=== PATIENT | male | born 1980 | race Hispanic/Latino ===

== ENCOUNTER → 2020-05-24 | Outpatient (CLI) | payer BC ==
--- NOTE | 2020-05-24 11:22 | Diagnostic Imaging Report ---
EXAM: CHEST 2 VIEWS, RIBS UNILAT W/CXR DATE: 05/24/2020 10:30 AM INDICATION: Right rib pain COMPARISON: None FINDINGS: The trachea is midline. The lungs are symmetrically expanded without evidence for large focal consolidation, pneumothorax, or significant pleural effusion. The cardiomediastinal silhouette and pulmonary vasculature are within normal limits. No acute osseous abnormality is identified. Specifically, no radiographically evident/displaced right-sided rib fracture is appreciated. The surrounding soft tissues are unremarkable. IMPRESSION: No acute cardiopulmonary process identified. No radiographic evident right-sided rib fracture is appreciated. Signed by: Dr. Rubio Perez MD on 05/24/2020 11:18 AM
== END ==
LOC: RAD 10:22
PROVIDERS: ATTEND Family Medicine
DX: R07.89 Other chest pain (principal)
CPT/HCPCS: 71046; 71101

== ENCOUNTER 2020-05-29 17:19 | Emergency (ER) | payer BC ==
[~2020-05-29] VITALS: Ht 182.9 cm; Wt 99.8 kg
[2020-05-29] MEDS ORDERED: ONDANSETRON HCL INJ 2MG/ML 2ML 2 MG/ML VIAL IV STA (17:39)
[2020-05-29] MEDS ORDERED: MORPHINE SULFATE INJ 4 MG/ML INJ 1ML IV STA (17:39)
[2020-05-29] MEDS ORDERED: SODIUM CHLORIDE 0.9% 1000ML 1,000 ML IV STA (17:39)
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
[2020-05-29] MEDS ORDERED: ASPIRIN 81 MG CHEW TAB PO ONE (17:45)
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
--- OUTSIDE RECORDS SUMMARY | 2020-05-29 18:07 | XMS REPORT | Continuity of Care Document ---
Author Author [facility] t Organization [facility] Address [address] [place] [address] Phone Unavailable Care Team Providers Care Outgoing Inspector Name Role Phone UNKNOWN, REFFERING PCP Unavailable Whitney MELÉNDEZ MD Attphys Unavailable Rubio Guo Attphys Lion Guerrero Attphys Melvina Goodson Attphys Problems Condition Name Condition Details Condition Category Status Onset Date Resolution Date Last Treatment Date Treating Clinician Comments Source DX: N50.9= /R31.0 DX: N50.9= /R31.0 Active 04/13/2018 [facility] Active 2018-04-13 00:00:00 2018-04-17 12:46:00 Nayely Dodd PAIN PAIN Active 03/27/2018 [facility] Active 2018-03-27 00:00:00 2018-03-27 18:23:00 Nayely Dodd UNSPECIFIED DISORDER OF MALE GENITAL ORGANS UNSPECIFIED DISORDER OF MALE GENITAL ORGANS Active 04/19/2014 Condition 05/03/2014 Medical Group Condition Active 2014-04-19 00:00:00 2014-05-03 11:17:45 Nayely Dodd Disease of male genital organ (disorder) Disease of male genital organ (disorder) Active 04/19/2014 Problem 11/04/2018 Data migrated from [facility] on 02/14/15. [facility] Problem Active 2014-04-19 00:00: 00 2018-11-04 13:39:54 Nayely Dodd LOWER ABDOMINAL PAIN/SWELLING-OTHER LOWER ABDOMINAL PAIN/SWELLING-OTHER Active 04/11/2014 [facility] Ac tive 2014-04-11 00:00:00 2014-04-11 11:56:00 M emorimaryanne Dodd Gross hematuria Esmer s hematuria 11/04/2018 [facility] Problem 2018-11-04 13:39:54 Nayely Dodd Diverticulosis of large intestine withou t perforation or abscess without bleeding Diverticulosis o f large intestine without perforation or abscess without bleeding 11/04/2018 [facility] Problem 2018-11-04 13:39:54 [facility] Disorder of male genital organs, unspecified Disorder of male genital organs, unspecified 04/23/2018 11/04/2018 [facility] Problem 2018-04-23 03:19:04 2018-11-04 13:39:54 2018-11-04 13:39:54 [facility] Urinary tract infection, site not specified Urinary tract infection, site not specified 03/27/2018 03/30/2018 [facility] Problem 2018-03-27 05:00:00 2018-03-30 03:21:12 2018-03-30 03:21:12 [facility] Discharge Diagnosis: Hernia, inguinal, left Discharge Diagnosis: Hernia, inguinal, left 04/11/2014 04/14/2014 [facility] Problem 2014-04-11 05:00:00 2014-04-14 00:34:32 2014-04-14 00:34:32 [facility] Discharge Diagnosis: Nonspecific urethritis Discharge Diagnosis: Nonspecific urethritis 04/11/2014 04/14/2014 [facility] Problem 2014-04-11 05:00:00 2014-04-14 00:34:32 2014-04-14 00:34:32 [facility] Allergies, Adverse Reactions, Alerts This patient has no known allergies or adverse reactions. Social History Social Habit Start Date Stop Date Quantity Comments Source Social History 2014-04-11 16:37:01 2014-04-11 16:37:01 [facility] Medications Ordered Medication Name Filled Medication Name Start Date Stop Da te Current Medication? Ordering Clinician Indication Dosage Frequency Signature (SIG) Comments Components Source Omnipaque 300 injectable solution 2018-04-17 19:00:00 No Notes: (Same as:Omnipaque 300). WASTE: F/P - Black; E - Municipal Trash Bin [facility] Pyridium 2018-03-28 00:47:00 No 200 mg, Route: PO, ONCE, Dosing Weight 92.273, kg, Priority: STAT, Start date: 03/27/18 19:47:00 CDT, Stop date: 03/27/18 19:47:[address] [facility] Phenazopyridine hydrochloride 200 MG Oral Tablet [Pyridium] 2018-03-28 00:46:00 No 200 mg = 1 tab, PO, TID, PRN Dysuria, X 2 day, # 6 tab, 0 Refill(s) Nayely Dodd Ciprofloxacin 500 MG Oral Tablet [Cipro] 2018-03-28 00:46:00 Yes 500 mg = 1 tab, PO, Q12H, X 14 day, # 28 tab, 0 Refill(s) Nayely Dodd DOXYCYCLINE HYCLATE 100 MG CAPS 2014-04-19 00:00:00 No Take one capsule by mouth twice daily for 10 days Nayely Dodd doxycycline hyclate 100 mg oral tablet 2014-04-11 17:57:00 Yes 100 mg = 1 tab, PO, Q12H, # 20 tab, 0 Refill(s) Nayely Dodd Azithromycin 2014-04-11 16:58:00 No 1,000 mg, Route: PO, ONCE, Dosing Weight 100, kg, Priority: STAT, Start date: 04/11/14 11:58:00, Stop date: 04/11/14 11:58:00 Nayely Dodd Ceftriaxone 2014-04-11 16:58:00 No 250 mg, Route: IM, Drug form: PDR/INJ, ONCE, Dosing Weight 100, kg, Priority: STAT, Start date: 04/11/14 11:58:00, Stop date: 04/11/14 11:58:00 Desi Dodd Vital Signs Vital Name Observation Time Observation Value Comments Source Heart Rate 2018-03-28 01:39:00 Nayely Dodd Temperature Oral (F) 2018-03-28 01:39:00 98 F [facility] Respitory Rate 2018-03-28 01:39:00 Saundra al [facility] Systolic (mm Hg) 2018-03-28 01:39:00 [facility] Diastolic (mm Hg) 2018-03-28 01:39:00 [facility] Temperature Oral (F) 2018-03-27 22:43:00 98.7 F [facility] Systolic (mm Hg) 2018-03-27 22:43:00 [facility] Diastolic (mm Hg) 2018-03-27 22:43:00 Marilou Dodd BMI Calculated 2018-03-27 22:43:00 Saundra al [facility] Height 2018-03-27 22:43:00 172.72 cm [facility] Weight 2018-03-27 22:43:00 [facility] Respitory Rate 2018-03-27 22:43:00 [facility] Heart Rate 2018-03-27 22:43:00 [facility] Height 2014-05-03 16:17:45 [facility] Weight 2014-05-03 16:17:45 [facility] Temperature Oral (F) 2014-05-03 16:17:45 98.1 F [facility] Heart Rate 2014-05-03 16:17:45 [facility] Systolic (mm Hg) 2014-05-03 16:17:45 [facility] Diastolic (mm Hg) 2014-05-03 16:17:45 [facility] Height 2014-04-19 19:00:04 [facility] Weight 2014-04-19 19:00:04 [facility] Temperature Oral (F) 2014-04-19 19:00:04 99.0 F [facility] Heart Rate 2014-04-19 19:00:04 [facility] Systolic (mm Hg) 2014-04-19 19:00:04 [facility] Diastolic (mm Hg) 2014-04-19 19:00:04 [facility] Diastolic (mm Hg) 2014-04-11 18:04:00 [facility] Temperature Oral (F) 2014-04-11 18:04:00 98.1 F [facility] Heart Rate 2014-04-11 18:04:00 [facility] Respitory Rate 2014-04-11 18:04:00 [facility] Systolic (mm Hg) 2014-04-11 18:04:00 [facility] Weight 2014-04-11 14:10:00 [facility] BMI Calculated 2014-04-11 14:10:00 [facility] Height 2014-04-11 14:10:00 172.72 cm [facility] Temperature Oral (F) 2014-04-11 14:10:00 99.0 F [facility] Diastolic (mm Hg) 2014-04-11 14:10:00 [facility] Heart Rate 2014-04-11 14:10:00 [facility] Respitory Rate 2014-04-11 14:10:00 [facility] Systolic (mm Hg) 2014-04-11 14:10:00 [facility] Procedures Procedure Date / Time Performed Performing Clinician Gemma restrepo smoking/tobacco cessation, patient education and counseling 2014-05-03 16:17:45 [facility] Encounters Start Date/Time End Date/Time Encounter Type Admission Type Att[facility] Care Department Encounter ID Source 2018-04-17 12:39:00 2018-04-17 23:59:00 Outpatient Sari Jesus [facility] [id number] 2018-03-27 17:35:00 2018-03-27 20:41:00 Outpatient Alvin Guerrero valerio [facility] [id number] 2017-12-20 13:58:00 2017-12-20 13:58:00 Emergency E [facility] [id number] [facility] 2014-04-11 08:50:00 2014-04-11 13:53:00 Outpatient Yao Goodson [facility] [id number] Results Test Description Test Time Test Comments Results Result Comments Source RIBS UNILAT W/CXR 2020-05-24 11:11:00 [place] [address] Patient Name: AGNES YODER MR #: [id number] : 1980 Age/Sex: 39/M Req #: [id number] Adm Physician: Ordered by: MEDHAT CROWE, ALEJANDRA Olson MD Report #: [id number] Location: [facility] Room/Bed: Procedure: [id number] DX/RIBS UNILAT W/CXR Exam Date: 05/24/20 Exam Time: 1030 REPORT STATUS: Signed EXAM: CHEST 2 VIEWS, RIBS UNILAT W/CXR DATE: 05/24/2020 10:30 AM INDICATION: Right rib pain COMPARISON: None FINDINGS: The trachea is midline. The lungs are symmetrically expanded without evidence for large focal consolidation, pneumothorax, or significant pleural effusion. The cardiomediastinal silhouette and pulmonary vasculature are within normal limits. No acute osseous abnormality is identified. Specifically, no radiographically evident/displaced right-sided rib fracture is appreciated. The surrounding soft tissues are unremarkable. IMPRESSION: No acute cardiopulmonary process identified. No radiographic evident right-sided rib fracture is appreciated. Signed by: Dr. Rubio Perez MD on 05/24/2020 11:18 AM Dictated By: RUBIO PEREZ MD [id number] COPY TO: ALEJANDRA MELÉNDEZ CHEST 2 VIEWS 2020-05-24 11:11:00 [place] [address] Patient Name: AGNES YODER MR #: [id number] : 1980 Age/Sex: 39/M Req #: [id number] Adm Physician: Ordered by: MEDHAT CROWE, ALEJANDRA Olson MD Report #: [id number] Location: RAD Room/Bed: Procedure: [id number] DX/CHEST 2 VIEWS Exam Date: 05/24/20 Exam Time: 1030 REPORT STATUS: Signed EXAM: CHEST 2 VIEWS, RIBS UNILAT W/CXR DATE: 05/24/2020 10:30 AM INDICATION: Right rib pain COMPARISON: None FINDINGS: The trachea is midline. The lungs are symmetrically expanded without evidence for large focal consolidation, pneumothorax, or significant pleural effusion. The cardiomediastinal silhouette and pulmonary vasculature are within normal limits. No acute osseous abnormality is identified. Specifically, no radiographically evident/displaced right-sided rib fracture is appreciated. The surrounding soft tissues are unremarkable. IMPRESSION: No acute cardiopulmonary process identified. No radiographic evident right-sided rib fracture is appreciated. Signed by: Dr. Rubio Perez MD on 05/24/2020 11:18 AM Dictated By: RUBIO PEREZ MD [id number] COPY TO: ALEJANDRA MELÉNDEZ CHEM PANEL 2018-04-17 18:16:00 113 [facility] CHEM PANEL 2018-04-17 18:16:00 0.8 [facility] URINE AND STOOL 2018-03-27 22:57:00 16 [facility] URINE AND STOOL 2018-03-27 22:57:00 7 [facility] URINE AND STOOL 2018-03-27 22:57:00 Negative (03/27/18 5:57 PM) [facility] URINE AND STOOL 2018-03-27 22:57:00 Moderate *ABN*(03/27/18 5:57 PM) [facility] URINE AND STOOL 2018-03-27 22:57:00 Test Item UA Spec Grav (test code = UA Spec Grav) 1.013 1 [facility] [id number] 22:57:00* Test Item Value Reference Range Interpretation Comments UA pH (test code = UA pH) 5.0 1 5.0-8.0 [facility] [id number] 22:57:00Clear (03/27/18 5:57 PM) [facility] [id number] 22:57:00Negative *NA*(03/27/18 5:57 PM) [facility] [id number] 22:57:00Small *ABN*(03/27/18 5:57 PM) [facility] 1 [id number] 15:38:35EXAM: CHEST ONE VIEWINDICATION: Chest painCOMPARISON: None availableTECHNIQUE: AP view of the chest.FINDINGS: The cardiomediastinal silhouette is normal. The lungs are clearbilaterally. No pneumothorax or pleural effusion is identified. Theosseous structures are unremarkable.IMPRESSION: No acute cardiopulmonary process .LOCATION: [id number] AND [id number] 16:15:00Yellow *NA*(04/11/14 11:15 AM) [facility] [id number] 16:15:00Slight *ABN*(04/11/14 11:15 AM) [facility] [id number] 16:15:004[facility] [id number] 16:15:0014[facility] [id number] 16:15:00 1.026[facility] [id number] 16:15:005.0[facility] [id number] 16:15:00Negative (04/11/14 11:15 AM)[facility] [id number] 16:15:00Negative (04/11/14 11:15 AM)[facility] [id number] 16:15:00Negative *NA*(04/11/14 11:15 AM)[facility] [id number] 16:15:00Trace *ABN*(04/11/14 11:15 AM)[facility]
[2020-05-29 18:09] LABS: BASOPHILS # (AUTO) 0.1 (0.0-0.1); BASOPHILS % 0.6 % (0.0-1.0); EOSINOPHILS # (AUTO) 0.1 (0.0-0.4); EOSINOPHILS % 1.3 % (0.0-6.0); HEMATOCRIT 48.1 % (38.2-49.6); HEMOGLOBIN 15.6 g/dL (14.0-18.0); LYMPHOCYTES # (AUTO) 2.5 (1.0-3.2); MEAN CORPUSCULAR HEMOGLOBIN 27.2 pg (28-32); MEAN CORPUSCULAR HGB CONC 32.4 g/dL (31-35); MEAN CORPUSCULAR VOLUME 83.9 fL (81-99); MONOCYTES # (AUTO) 0.7 (0.2-0.8); MONOCYTES % 7.2 % (4.4-11.3); NEUTROPHILS # (AUTO) 6.2 (2.1-6.9); NEUTROPHILS % 64.5 % (38.7-80.0); PLATELET COUNT 219 x10e3/uL (140-360); RED BLOOD COUNT 5.73 x10e6/uL (4.3-5.7); RED CELL DISTRIBUTION WIDTH 14.3 % (11.7-14.4)
[2020-05-29] MEDS ORDERED: KETOROLAC TROMETHAMINE 30 MG/ML VIAL IV STA (18:31)
[2020-05-29 18:33] LABS: ALANINE AMINOTRANSFERASE 31 IU/L (0-55); ALBUMIN/GLOBULIN RATIO 1.7 (0.8-2.0); ALKALINE PHOSPHATASE 67 IU/L (40-150); ANION GAP 15.8 mmol/L (8-16); BLOOD UREA NITROGEN 16 mg/dL (7-26); BUN/CREATININE RATIO 16 (6-25); CARBON DIOXIDE 26 mmol/L (22-29); CHLORIDE 103 mmol/L (98-107); CREATINE KINASE 239 IU/L (30-200); CREATININE, SERUM 1.03 mg/dL (0.72-1.25); EST GLOMERULAR FILTRATION RATE > 60 ML/MIN (60-); GLUCOSE 92 mg/dL (74-118); POTASSIUM 3.8 mmol/L (3.5-5.1); SODIUM 141 mmol/L (136-145)
[2020-05-29 18:37] LABS: AMPHETAMINES SCREEN,URINE NEGATIVE (NEGATIVE); BENZODIAZEPINES SCREEN,URINE NEGATIVE (NEGATIVE); PHENCYCLIDINE SCREEN,URINE NEGATIVE (NEGATIVE)
[2020-05-29] MEDS ORDERED: SODIUM CHLORIDE 0.9% 50ML 50 ML ONE (18:45)
[2020-05-29] MEDS ORDERED: IOPAMIDOL 370 MG/ML 200 ML INFUS..BTL INJ ONE (18:45)
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
== END 2020-05-29 20:39 | disposition home or self-care (01) ==
LOC: ER 17:40
DX: M54.5 Low back pain (principal); R10.812 Left upper quadrant abdominal tenderness
CPT/HCPCS: 36415; 71260; 74177; 80053; 80307; 82550; 82553; 83690; 84484; 85025; 93005; 99284; J1885; J2405; J7030; Q9967

== ENCOUNTER 2022-07-04 14:18 | Emergency (ER) | payer BC ==
[~2022-07-04] VITALS: Ht 172.7 cm; Wt 104.3 kg
[2022-07-04 15:27] LABS: BASOPHILS # (AUTO) 0.1 (0.0-0.1); BASOPHILS % 1.1 % (0.0-1.0); EOSINOPHILS # (AUTO) 0.4 (0.0-0.4); EOSINOPHILS % 4.8 % (0.0-6.0); HEMATOCRIT 46.9 % (38.2-49.6); HEMOGLOBIN 15.3 g/dL (14.0-18.0); LYMPHOCYTES # (AUTO) 2.1 (1.0-3.2); LYMPHOCYTES % 28.6 % (18.0-39.1); MEAN CORPUSCULAR HEMOGLOBIN 27.6 pg (28-32); MEAN CORPUSCULAR HGB CONC 32.6 g/dL (31-35); MEAN CORPUSCULAR VOLUME 84.5 fL (81-99); MONOCYTES # (AUTO) 0.9 (0.2-0.8); MONOCYTES % 11.6 % (4.4-11.3); NEUTROPHILS # (AUTO) 3.9 (2.1-6.9); NEUTROPHILS % 53.2 % (38.7-80.0); PLATELET COUNT 275 x10e3/uL (140-360); RED BLOOD COUNT 5.55 x10e6/uL (4.3-5.7); RED CELL DISTRIBUTION WIDTH 13.5 % (11.7-14.4)
[2022-07-04 15:46] LABS: ALBUMIN 4.3 g/dL (3.5-5.0); ANION GAP 16.6 mmol/L (8-16); CALCIUM 9.6 mg/dL (8.4-10.2); CREATININE, SERUM 0.96 mg/dL (0.72-1.25); POTASSIUM 3.6 mmol/L (3.5-5.1)
[2022-07-04] MEDS ORDERED: CLEOCIN HCL300 MG PO (17:50)
== END 2022-07-04 18:00 | disposition home or self-care (01) ==
LOC: ER 14:57
DX: M25.522 Pain in left elbow (principal); R22.32 Localized swelling, mass and lump, left upper limb; F41.9 Anxiety disorder, unspecified
CPT/HCPCS: 36415; 80053; 85025; 99283